=== PATIENT | female | born 1975 | race Caucasian/White ===

== ENCOUNTER 2019-12-13 12:14 | Day surgery (SDC) | payer MEDICARE ==
[~2019-12-13] VITALS: Ht 170.2 cm; Wt 50.0 kg
[2019-12-13 12:48] LABS: BASOPHILS 0.4 % (0-2); EOSINOPHILS 0.7 % (0-7); HEMATOCRIT 42.1 % (36.0-48.0); HEMOGLOBIN 14.4 g/dL (12-16); IMMATURE GRANULOCYTES 0.3 % (0-5); LYMPHOCYTES 35.6 % (15-50); MCH 31.9 pg (26.0-34.0); MCHC 34.2 g/dL (31.0-37.0); MCV 93.1 fL (80.0-100.0); RBC 4.52 10x6/uL (4.00-5.40); RDW 14.1 % (11.5-14.5)
[2019-12-13] MEDS ORDERED: ZANAFLEX4 MG PO (12:54)
[2019-12-13] MEDS ORDERED: CELEXA20 MG PO (12:54)
[2019-12-13] MEDS ORDERED: PROTONIX40 MG PO (12:55)
[2019-12-13] MEDS ORDERED: MELATONIN 3 MG1 TAB PO (12:55)
[2019-12-13 12:56] LABS: PLATELET COUNT 220 10x3/uL (130-400)
[2019-12-13 13:02] LABS: INR 1.02 (0.85-1.17); PROTIME 13.3 SECONDS (11.6-15.0)
[2019-12-13 13:03] LABS: ALBUMIN 4.2 g/dL (3.4-5.0); ALKALINE PHOSPHATASE 76 U/L (30-120); ALT (SGPT) 20 U/L (10-68); BILIRUBIN - TOTAL 0.53 mg/dL (0.2-1.3); CALC OSMOLALITY 270 mosm/kg (275-300); CALCIUM 8.3 mg/dL (8.5-10.1); CARBON DIOXIDE 30.5 mmol/L (21.0-32.0); CHLORIDE - SERUM 100 mmol/L (98-107); CREATININE - SERUM 0.6 mg/dL (0.6-1.3); GLUCOSE 86 mg/dL (74-106); POTASSIUM - SERUM 3.2 mmol/L (3.5-5.1); PROTEIN - SERUM 7.2 g/dL (6.4-8.2); SODIUM 137 mmol/L (136-145); UREA NITROGEN 6 mg/dL (7-18); eGFR NON AFRICAN AMERICAN > 90 mL/min (90-120)
[2019-12-13 13:04] VITALS: BP 111/66; Ht 170.2 cm; Wt 50.0 kg
--- NOTE | 2019-12-13 15:02 | NUR ---
1441 IV DC'D. CATHETER TIP INTACT. NO BLEEDING AT SITE AFTER HOLDING PRESSURE. BANDAID APPLIED. 1456 DISCHARGE INSTRUCTIONS REVIEWED WITH PT WHO VOICES UNDERSTANDING OF INSTRUCTIONS AND FOLLOWUP APPOINTMENTS FOR ADDITIONAL PROCEDURES.
--- NOTE | 2019-12-14 06:47 | OP ---
PATIENT NAME: STEPHANIA MURILLO MEDICAL RECORD: [id number] :71 LOCATION:[facility] ADMISSION DATE: SURGEON: ALEK MIRANDA DO DATE OF OPERATION: 12/13/2019 PROCEDURE: Colonoscopy with polypectomy and biopsies. INDICATIONS FOR PROCEDURE: History of colon polyps and diverticulosis. SCOPE: The [employer] video pediatric colonoscope. MEDICATIONS: Propofol 300 mg IV per anesthesia. WITHDRAWAL TIME: 18 minutes. ESTIMATED BLOOD LOSS: Minimal. COMPLICATIONS: None. FINDINGS: Informed consent was given. The patient was made comfortable with the above medication. After reaching an adequate level of sedation by slow IV push, the patient was placed in the left side. A digital rectal examination was performed and was normal. The endoscope was then advanced under direct visualization through the rectum to the cecum and terminal ileum. The endoscope was slowly withdrawn and mucosa was carefully examined. The prep quality was good. There were 2 polyps visualized on today's examination. The first was located in the ascending colon. It was a benign appearing sessile polyp, which measured approximately 4 mm in diameter. It was removed using hot forceps. Second polyp was located in the transverse colon. It was a benign appearing sessile polyp, which measured approximately 4 mm in diameter. It was removed using hot forceps. There was mild diverticulosis involving the sigmoid colon. In the rectum, there was a change in the mucosa, which appeared somewhat hemorrhagic in one specific location. Appearances could be consistent with prep changes. The biopsies were taken with cold forceps to exclude other pathology such as ulcerative colitis. Random biopsies were performed throughout the colon to submit for histopathology and to rule out microscopic colitis. Retroflexion was performed in the rectum with visualization of grade I internal hemorrhoids without bleeding. The endoscope was withdrawn from the patient. The patient tolerated the procedure well and there were no complications. IMPRESSION: 1. Two polyps as described above removed using hot forceps. 2. Mild diverticulosis of the sigmoid colon. 3. A single patch of abnormal mucosa located in the rectum consistent with proctitis. Appearances could be consistent with prep changes. Biopsies taken. 4. Grade I internal hemorrhoids without bleeding. PLAN AND RECOMMENDATIONS: 1. Discharge home when recovery parameters are met. 2. Follow up biopsy specimen results. 3. High fiber diet. 4. Continue current medications. 5. Proceed with upper endoscopy as planned. 6. PIPIDA scan to evaluate gallbladder function and gastric emptying scan to rule out gastroparesis while awaiting upper endoscopy. OPERATIVE REPORT [id number] STEPHANIA MURILLO TRANSINT:[id number] Voice Confirmation ID: [id number] DOCUMENT ID: [id number] ALEK MIRANDA DO at 0647 CC: [id number] DICTATION DATE: 12/13/19 1415 SUPERVISOR REWORK: 12/13/19 2326 [facility] 12/13/19 [place] [id number]
== END 2019-12-13 14:58 | disposition home or self-care (01) ==
LOC: D.OPS 12:14
PROVIDERS: Anesthesiology; ATTEND Internal Medicine Gastroenterology
DX: Z86.010 Personal history of colon polyps (principal); K63.5 Polyp of colon; K57.90 Diverticulosis of intestine, part unspecified, without perforation or abscess without bleeding; J44.9 Chronic obstructive pulmonary disease, unspecified; E11.9 Type 2 diabetes mellitus without complications; K21.9 Gastro-esophageal reflux disease without esophagitis; R11.2 Nausea with vomiting, unspecified

== ENCOUNTER → 2019-12-20 08:33 | Outpatient (CLI) | payer MEDICARE ==
[2019-12-13 13:04] VITALS: BMI 17.2
[~2019-12-20 08:33] MED LIST: CELEXA20 MG PO; MELATONIN 3 MG1 TAB PO; PROTONIX40 MG PO; ZANAFLEX4 MG PO
== END | disposition home or self-care (01) ==
LOC: D.NM 08:30
PROVIDERS: ATTEND Internal Medicine Gastroenterology
DX: Z86.010 Personal history of colon polyps (principal)

== ENCOUNTER 2020-01-18 08:04 | Day surgery (SDC) | payer OTHER ==
[~2020-01-18] VITALS: Ht 167.6 cm; Wt 50.8 kg
--- NOTE | ~2020-01-18 | OP ---
PATIENT NAME: STEPHANIA MURILLO MEDICAL RECORD: [id number] :71 LOCATION:[facility] ADMISSION DATE: SURGEON: JESSEE GENAO MD DATE OF OPERATION: 01/18/2020 PREOPERATIVE DIAGNOSES: 1. Biliary dyskinesia. 2. Tobacco dependence syndrome. POSTOPERATIVE DIAGNOSES: 1. Biliary dyskinesia. 2. Tobacco dependence syndrome. PROCEDURE: Laparoscopic cholecystectomy. SURGEON: Jessee Genao MD REPORT OF PROCEDURE: The patient's abdomen was prepped and draped in sterile fashion. A cutdown was made on the inferior aspect of the umbilicus, 0 Vicryls were placed in the fascia bilaterally and the fascia was incised with a 15-blade. I then bluntly entered the peritoneal cavity and placed a 12-mm Shellie port. Under direct visualization, a 5-mm trocar was placed in the epigastrium and two more 5-mm trocars were placed in the right subcostal region. The gallbladder was noted to be distended with some chronic inflammatory changes. This was elevated and the cystic artery and cystic duct were dissected free. These were clipped proximally and distally and ligated in standard fashion. The gallbladder was taken off the liver bed using electrocautery and placed into an Endo Catch bag. The right upper quadrant was then irrigated out with normal saline and care was taken to assure there was no sign of any bleeding or bile leakage. At this point, the ports and insufflation were then removed and the gallbladder was taken out through the umbilicus. The umbilical fascia was closed with interrupted 0 Vicryls times 3. The wounds were irrigated out with normal saline and infused with 10 mL of 0.25% Marcaine with epinephrine. The skin incisions were all closed with subcutaneous 5-0 Monocryl and dressed appropriately. COMPLICATIONS: None. CONDITION: Stable. ANESTHESIA: General endotracheal and local. BLOOD LOSS: Minimal. TRANSINT:[id number] Voice Confirmation ID: [id number] DOCUMENT ID: [id number] cc: Lydia Brandon APN OPERATIVE REPORT [id number] STEPHANIA MURILLOJESSEE CABAN MD CC: TEAGAN LOVE MD [id number] DICTATION DATE: 01/18/20 1409 PRESCRIPTION CLERK: 01/18/20 232 [facility] 01/18/20 [place] [id number] [place] [address]
[2020-01-18 08:25] LABS: HEMATOCRIT 42.7 % (36.0-48.0); HEMOGLOBIN 14.5 g/dL (12-16); MCH 31.3 pg (26.0-34.0); MCV 92.2 fL (80.0-100.0); MEAN PLATELET VOLUME 9.3 fL (7.4-10.4); RBC 4.63 10x6/uL (4.00-5.40); RDW 13.9 % (11.5-14.5); WBC 8.5 10x3/uL (4.8-10.8)
[2020-01-18 09:21] VITALS: BP 125/56; Ht 167.6 cm; Wt 50.8 kg
[2020-01-18] MEDS ORDERED: HYDROCODON-ACE1 EA10 PO (14:05)
== END 2020-01-18 16:15 | disposition home or self-care (01) ==
LOC: D.OPS 08:04
PROVIDERS: Anesthesiology; ATTEND Surgery
DX: K82.8 Other specified diseases of gallbladder (principal); F17.200 Nicotine dependence, unspecified, uncomplicated; E11.9 Type 2 diabetes mellitus without complications

== ENCOUNTER 2020-02-29 05:38 | Day surgery (SDC) | payer OTHER ==
[~2020-02-29] VITALS: Ht 167.6 cm; Wt 51.8 kg
--- NOTE | ~2020-02-29 | OP ---
PATIENT NAME: STEPHANIA MURILLO MEDICAL RECORD: [id number] :71 LOCATION:[facility] ADMISSION DATE: SURGEON: JESSEE GENAO MD DATE OF OPERATION: 02/29/2020 PREOPERATIVE DIAGNOSES: 1. Gastroesophageal reflux disease. 2. Tobacco dependence syndrome. 3. Diabetes mellitus. POSTOPERATIVE DIAGNOSES 1. Gastroesophageal reflux disease. 2. Tobacco dependence syndrome. 3. Diabetes mellitus. PROCEDURE: EGD with biopsy. SURGEON: Jessee Genao MD REPORT OF PROCEDURE: An Olympus endoscope was advanced through the mouth and esophagus. We were able to pass through the stomach through the pylorus and into the duodenum. We mated to the third portion of the duodenum. I did not see any masses or lesions. There is only some mild inflammatory changes present. There were no ulcerations visible. As we pulled the scope back, we eventually pulled through the pylorus. The pylorus had no signs of inflammatory changes with no masses or ulcerations. A random biopsy was taken of the antrum of the stomach. We then did a retroflex view and I did not see any evidence of a hiatal hernia. The GE junction appeared to be a little lax, but otherwise appeared to be normal. There was some effacement through the GE junction. We pulled the scope back and did not see any masses or lesions in the body or fundus of the stomach. The GE junction and Z line were noted to be at 40 cm at the teeth. As we pulled the scope back, we could see there was really no signs of any ulcerations to the distal esophagus. Random biopsy was taken in the distal third of the esophagus. We then removed the insufflation from the stomach. The scope was pulled out of the esophagus slowly and there were no signs of any masses or strictures. COMPLICATIONS: None. CONDITION: Stable. ANESTHESIA: TIVA. BLOOD LOSS: Minimal. TRANSINT:[id number] Voice Confirmation ID: [id number] DOCUMENT ID: [id number] OPERATIVE REPORT [id number] STEPHANIA MURILLO JESSEE GENAO MD CC: TEAGAN LOVE MD and ALEK MIRANDA DO [id number] DICTATION DATE: 02/29/20 0814 YARDING ENGINEER: 02/29/20 1734 [facility] 02/29/20 [place] [address] [place] [address]
[~2020-02-29 05:38] MED LIST changes: +HYDROCODON-ACE1 EA10 PO
[2020-02-29 06:03] LABS: MCH 32.3 pg (26.0-34.0); MCHC 34.1 g/dL (31.0-37.0); MCV 94.7 fL (80.0-100.0); MEAN PLATELET VOLUME 9.3 fL (7.4-10.4); RBC 4.33 10x6/uL (4.00-5.40); RDW 13.4 % (11.5-14.5); WBC 8.3 10x3/uL (4.8-10.8)
[2020-02-29 06:13] LABS: CALC OSMOLALITY 276 mosm/kg (275-300); CALCIUM 8.9 mg/dL (8.5-10.1); CARBON DIOXIDE 29.4 mmol/L (21.0-32.0); CHLORIDE - SERUM 104 mmol/L (98-107); CREATININE - SERUM 0.6 mg/dL (0.6-1.3); GLUCOSE 86 mg/dL (74-106); POTASSIUM - SERUM 4.2 mmol/L (3.5-5.1); SODIUM 140 mmol/L (136-145); UREA NITROGEN 11 mg/dL (7-18); eGFR NON AFRICAN AMERICAN > 90 mL/min (90-120)
[2020-02-29 06:42] VITALS: Ht 167.6 cm; Wt 51.8 kg
--- NOTE | 2020-02-29 07:14 | NUR ---
DR. MCDONALD NOTIFIED AND REVIEWED PT'S BEHAVIOR AND ASSESSMENT RESULTS. PT IS A LOW RISK PER DR. MCDONALD. DR. MCDONALD. STATED TO GIVE RESOURCES TO PT AT TIME OF DISCHARGE. NO FURTHER ORDERS AT THIS TIME. RESOURCES REVIEWED WITH PT AND SHE VERBALIZED UNDERSTANDING.
--- NOTE | 2020-02-29 09:08 | NUR ---
0906 DRESSED. AWAKE & ALERT. D/C INFORMATION INCLUDING: MED REC, SHEET LISTING NSAIDS TO AVOID, GERD DIET SHEET, & [facility]PS POST ENDOSCOPIC D/C INSTRUCTIONS SHEET REVIEWED WITH PATIENT. VOICED UNDERSTANDING. WAITING FOR TRANSPORTATION HOME TO ARRIVE. Ross JI R.N.
--- NOTE | 2020-02-29 09:15 | NUR ---
0962 TO PRIVATE CAR PER WHEELCHAIR BY THIS NURSE. HOME WITH BOYFRIEND, MARYAM SINGH. Ross JI R.N.
== END 2020-02-29 09:20 | disposition home or self-care (01) ==
LOC: D.OPS 05:38
PROVIDERS: Anesthesiology; ATTEND Surgery
DX: K21.9 Gastro-esophageal reflux disease without esophagitis (principal); F17.200 Nicotine dependence, unspecified, uncomplicated; E11.9 Type 2 diabetes mellitus without complications; K82.8 Other specified diseases of gallbladder